=== PATIENT | female | born 1995 | race Caucasian/White ===

== ENCOUNTER 2024-04-30 10:36 | Emergency (ER) | payer OTHER, SELFPAY ==
[2024-04-30 10:46] VITALS: BP 126/71; PULSE 88; RESP 18; TEMP 36.4; O2SAT 97
--- NOTE | 2024-04-30 10:48 | ED.URI ---
HPI - URI/Sore Throat General Chief Complaint: Upper Respiratory Infection Stated Complaint: cough Time Seen by Provider: 04/30/24 10:48 Source: patient, RN notes reviewed and old records reviewed Mode of arrival: ambulatory Limitations: no limitations History of Present Illness HPI Narrative: 28-year-old female presents to the [facility] with 2 week history of cough, congestion, body aches, scratchy throat. Denies any fevers. States that in last couple days she has strep voice. Patient reports that she has tried products. Onset (ago): week(s) (2) Treatments prior to arrival: cold medicine Related Data Home Medications ?Medication ?Instructions ?Recorded ?Confirmed ?Last Taken ?Type No Home Medications 04/30/24 04/30/24 Unknown History Allergies Allergy/AdvReac Type Severity Reaction Status Date / Time No Known Allergies Allergy Unknown Verified 04/30/24 10:48 Review of Systems Review of Systems: All systems reviewed & are unremarkable except as noted in HPI and below Constitutional: Constitutional: Reports as per HPI and Reports body ache(s) ENT: Reports as per HPI and Reports sore throat Cardiovascular: Cardiovascular: Reports no additional cardiovascular complaints, Denies chest pain and Denies dyspnea Respiratory: Respiratory: Reports as per HPI, Reports chest congestion, Reports cough and Denies dyspnea Musculoskeletal: Musculoskeletal: Reports no additional musculoskeletal complaints Integumentary/Breasts: Skin/Breast: Reports system reviewed and no additional complaints, except as docu PMFSH Comments At the time of my signature, I reviewed and agree with the nursing past medical, surgical, social, and family history. There is no relevant family history pertinent to the patient complaint. Exam Const: General: cooperative, healthy appearing, comfortable, no acute distress, well developed, alert and well nourished Nutritional Appearance: well nourished and obese Orientation/consciousness: patient oriented x3 Limitations: no limitations HENMT: Head: normal to inspection Ears: hearing grossly normal bilaterally, external ears normal, TM's normal bilaterally, EAC's normal, mastoids normal and no periauricular adenopathy Mouth: Yes Normal oral and palatal mucosa present, Yes lip normal, Yes tongue normal and Yes moist mucous membranes Throat: uvula midline, postnasal drainage, tonsils absent and no uvular edema Eyes: General: appearance normal, both eyes and all related structures Alignment and Position: alignment normal Neck: Neck: normal visual inspection, full ROM, no lymphadenopathy and no meningeal signs Chest: Chest palpation & inspection: normal inspection of the chest Resp: Effort & Inspection: normal respiratory effort and able to speak in complete sentences Auscultation: clear to auscultation bilaterally, no crackles, no rales, no rhonchi and no wheezes Cardio: Rate: regular rate Skin: General skin exam: normal color and no rashes or lesions noted Neuro: General: patient oriented x3, gait normal, moves all extremities and no meningeal signs Cognition (Neuro): normal cognition Speech: normal speech Gait exam (Neuro): Normal gait present Extrem: General: normal to inspection, full ROM, capillary refill normal and normal gait Psych: Appearance: grossly normal and well kempt Mental Status: mental status grossly normal Speech and movement: Normal speech and movement present and Clear speech present Affect: normal affect Attitude: cooperative Course Course Level of Care: Express Care Visit Vital Signs Vital signs: Vital Signs Temperature 97.5 F L 04/30/24 10:46 Pulse Rate 88 04/30/24 10:46 Respiratory Rate 18 04/30/24 10:46 Blood Pressure 126/71 04/30/24 10:46 Pulse Oximetry 97 04/30/24 10:46 Oxygen Delivery Room Air 04/30/24 10:46 Temperature 97.5 F L 04/30/24 10:46 Pulse Rate 88 04/30/24 10:46 Respiratory Rate 18 04/30/24 10:46 Blood Pressure 126/71 04/30/24 10:46 Pulse Oximetry 97 04/30/24 10:46 Oxygen Delivery Room Air 04/30/24 10:46 Reviewed MDM - URI/Sore Throat MDM Narrative Medical decision making narrative: Patient sitting exam room. Nontoxic, vitals stable. Patient with 2 week history of URI symptoms. Scratchy throat loss of voice in the last couple days. Strep test is negative, will culture Due to length of symptoms will treat with doxycycline, discussed that this may not help because of this is viral symptoms can last for several weeks. Patient is wanting to try the antibiotic Patient appropriate for outpatient treatment and follow-up Discharge instructions reviewed with patient, as well as provided in writing per nursing staff. The instructions also include specific and strict return/GO TO THE ER as well as f/u information. All questions have been answered, and the patient deny any further questions with discharge and discharge plan. Some parts of this dictation were generated by voice recognition software and may contain typographical and/or grammatical inaccuracies. Differential Diagnosis Differential diagnosis: Likely upper respiratory infection, otitis media, sinusitis, viral infection, bronchitis, influenza and pharyngitis Lab Data Labs: Lab Results 04/30/24 Range/Units 11:06 POC Grp A Strep Screen Negative (Negative) Reviewed Critical Care Time Critical Care Time Critical Care Time: No Discharge Plan Discharge Clinical Impression: Bronchitis Upper respiratory infection Qualifiers: URI type: unspecified viral URI Qualified Code(s): J06.9 - Acute upper respiratory infection, unspecified Patient Disposition: Home, Self-Care Condition: Stable Instructions: Antibiotic Form, Upper Respiratory Infection (ED), Acute Bronchitis (ED) Additional Instructions: Your rapid strep swab was negative today at [facility]. A throat culture will be sent to the laboratory for further testing. If the test is positive, you will receive a phone call within 48 hours and an appropriate antibiotic will be initiated at that time. It is very important to treat your symptoms. Drink plenty of water, Gatorade, Pedialyte, ice pops or Jell-O. -Alternate Tylenol and Motrin per package directions for fever or pain. You can alternate every 4 hours -Antihistamine medication such as Zyrtec/Claritin/Marilee during the day can help improve symptoms. -doing daily nasal irrigations can help relieve pressure your sinuses. Things like a Neti pot -Use Flonase twice a day for 5 days then daily to help reduce the inflammation and dry up your sinuses. -You can also use Mucinex. Be sure to drink plenty of water with this medication at least 8 ounces with every dose and it is important to drink 8 to 10 glasses of water per day. Water is a natural decongestant -Eat and drink things that are easy to swallow, like tea or soup, or popsicles. -Oral rinses such as: Salt water gargles and/or may use topical anesthetic (eg. Chloraseptic spray) or lozenges to relieve dryness or throat pain). -Frequent hand washing or hand unit coordinator is one of the best ways to prevent spread of infection. -Using a vaporizer or humidifier at night will also help thin secretions and help with coughing up phlegm. -Follow up with primary care provider in 7-10 days if condition is not improving If you are having a hard time finding a physician please call our [facility] liaison at [phone]. - For new or worsening symptoms go directly to the nearest ER Patient Language: Czech Prescriptions: New doxycycline monohydrate 100 mg tablet 100 mg PO BID Qty: 14 0RF No Action No Home Medications Follow-up/Referrals: PHYSICIAN,PHARMACY DATA ANALYST [Primary Care Provider] - Stand Alone Forms: Work/School Release IP Time of Disposition: 11:04
[2024-04-30 11:08] LABS: EDSTREPNEGPOS1 Negative (Negative)
--- OUTSIDE RECORDS SUMMARY | 2024-04-30 11:58 | XMS_ITS | Clinical Summary ---
Author Organization [facility] Address [address] [place] [id number] Care Team Providers Care Car Groomer Name Role Phone No, Physician Primary Care Provider [phone] Fausto Gonsalez MD Unavailable [phone] Allergies No known active allergies Medications [id number] cb,[id number]-[id number]-tmr -dha 27-1-50-250 mg combo pack Take by mouth Active famotidine (PEPCID) 20 mg tablet Take 1 tablet (20 mg total) by mouth 2 (two) times a day Active ibuprofen (ADVIL,MOTRIN) 600 mg tabletIndicatio ns:Cramps Take 1 tablet (600 mg total) by mouth every 6 (six) hours as needed for pain 40 tablet 1 03/12/2023 Active PNV with [id number]-[id number] ( Vitamin Plus Low Iron) 27 mg iron- 1 mg tablet Take 1 tablet by mouth daily 100 tablet 3 03/12/2023 Active acetaminophen ER (TYLENOL) 650 mg 8 hr tablet Take 1 tablet (650 mg total) by mouth every 8 (eight) hours as needed for pain 30 tablet 1 03/12/2023 Active docusate sodium (COLACE) 100 mg capsuleIndicati ons:constipatio n,Stool Softener Take 1 capsule (100 mg total) by mouth 2 (two) times a day Prn 60 capsule 1 03/12/2023 Active Active Problems Problem Noted Date Diagnosed Date care following vaginal delivery 03/11 Overview (03/12/2023): 03/11/23, PPD#1 (JF) S/p uncomplicated eIOL and EBL 150 cc, Hgb 10.3 O positive, Rubella immune Vital signs reviewed and wnl Ambulating, tolerating PO, voiding spontaneously, lochia moderate, pain controlled MOF: - no concerns MOC: condoms - reviewed spacing VTE ppx: The patient has the following MAJOR risk factors BMI >/= 40 and the following MINOR risk factors parity >/=3. enoxaparin 40 mg daily ordered for VTE prophylaxis. Mood: stable Dispo: Continue routine care 03/12/23, PPD#2 (KR) S/p uncomplicated eIOL and EBL 150 cc, Hgb 10.3 O positive, Rubella immune Vital signs reviewed and wnl Ambulating, tolerating PO, voiding spontaneously, lochia moderate, pain controlled MOF: - no concerns MOC: condoms - reviewed spacing VTE ppx: The patient has the following MAJOR risk factors BMI >/= 40 and the following MINOR risk factors parity >/=3. enoxaparin 40 mg daily ordered for VTE prophylaxis. Mood: stable Dispo: discharge home today Normal spontaneous vaginal delivery 03/10/2023 Encounter for elective induction of labor 2023 Overview (03/10/2023): 03/10/2022 1116 (CZ) 27 yo @ 39w1d here for induction of labor. Her was complicated by asthma, GBS uria, Short interval , Morbid obesity, and LGA, last EFW 02/16 95%. VSS, afebrile O+, rubella Immune Hgb: 10.3 SVE 4.5/80/-2 GBS Positive : 3 doses of PCN administered AROM performed with patient consent. Moderate amount of meconium stained fluid noted. Patient would like to avoid OT, but will consider if no cervical change is made. Discussed options for monitoring. Recommended internals. Patient declines. Plan intermittent monitoring with reactive tracing until OT is started or with non-reactive tracing. Anticipate Pain meds per patient request. 03/10/2023 1215 (CZ) VSS, afebrile Reactive tracing with difficulty monitoring patient SVE 5/80/-2 IUPC and FSE placed with patient consent. Patient endorsing painful contractions Consider OT if necessary. Anticipate 03/10/2022 1608 (CZ) VSS, afebrile Occasional variable decelerations noted on monitoring that resolve with position changes. Cat.2 SVE 5/70/-2 Unchanged from previous exam Discussed OT titration. Patient agrees. Plan OT titration per protocol Encouraged frequent position changes. Anticipate 03/10/2022, 1830 (Sunshine): Patient is tolerating unmedicated labor. Has received 4 doses of penicillin. Oxytocin had been started and increased to 4 mU/min, then discontinued due to repetitive deep variable decelerations. Amnio infusion administered, initially 450 mL, then held, then an additional 250 mL now being administered. FHT baseline 120s to 130s, moderate variability, repetitive variable decelerations to [place] between 60s to 80s, lasting from 40-60 seconds. 8/80/-2 Contractions every 4-7 minutes Continue to change position and watch closely as patient is making progress. Excessive growth affec ting management of in third trimester 02/16/2023 Encounter for supervision of normal in second trimester 09/17/2022 Supervision of other normal , antepartu m 11/21/2021 Overview (03/10/2023): Surveillance of EDC by LMP= 10wk US O+/I/-/-/HIV RPR NR Genetics: none Anatomy: 20 weeks (complete EFW 86%) GCT: 93 3rd trim CBC/HIV/RPR - 10.6/34.0 - oral iron recommended Tdap: 01/04 GBS: GBS- URIA! COVID Vaccine: declined Social Barriers: none Mood: stable Mode of feeding: breast Method of contraception: condoms Delivery Planning: Desires rrIOL at 39 weeks. Scheduled 03/15 at 5 am with pitocin and PCN to start right away Short Interval < 9 months Vaginal delivery 11/20/2021 Discussed short interval including increased risk of PTL/PTB, and low weight Morbid Obesity; LGA BMI 56 Counseled on target weight gain for this Early GCT - passed 117 Reviewed healthy diet and exercise ASA 81mg daily at 12 weeks Needs serial growth US - last 02/16 - 95.9% (LGA). Counseled on risks of LGA delivery Recommend weekly monitoring @ 34wks BPP 03/03 10/12 anesthesia consult - seen 02/15 - cleared for delivery here at [facility], considering no epidural. H/o Asthma Well controlled, no meds Obesity affecting , antepartum 05/14/19 GBS bacteriuria 05/13/2021 Resolved Problems Problem Noted Date Diagnosed Date Resolved Date Normal course 11/21/2021 Overview (11/22/2021): 11/21/2021, PPD 1 status post (Sunshine): Rh positive, rubella immune Ambulating, voiding, tolerating regular diet, pain controlled. Lochia normal AF VSS WNL Normal exam H&H appropriate Continue routine care Anticipate discharge home tomorrow 11/22/2021, PPD 2 (Sunshine): well Ambulating, voiding, tolerating regular diet, pain tolerable AF VSS WNL Normal exam Stable for discharge Routine discharge precautions Patient declines discharge prescription for pain medication 39 weeks gestation of 11/20/2021 11/22/2021 Encounter for elective induction of labor 11/20/2021 11/22/2021 Overview (11/22/2021): 11/20/21, 1:15pm (SO): heart rate 170-180 on admission. Unable to monitor effectively with EFM or [place] r/t morbid obesity. VE 4.5/80/-2 and well applied to cervix. AROM done, scalp lead and IUPC applied. No fluid seen. IV fluid bolus was given Will monitor and was the FHR is Cat 1, will start pitocin EFW 62% Pain management per patient's wishes Immunizations Immunization Administration Dates Next Due Tdap 01/04/2023 Surgical History Surgery Date Site/Laterality Comments COLONOSCOPY TONSILLECTOMY UPPER GASTROINTESTINAL ENDOSCOPY Medical History Medical History Date Comments Abnormal Pap smear of cervix Depression Asthma Family History Medical History Relation Name Comments Hypertension Father Diabetes Maternal Grandfather Diabetes Mother Breast cancer Neg Hx Ovarian cancer Neg Hx Uterine cancer Neg Hx Relation Name Status Comments Father Alive Maternal Grandfather Mother Alive Social History Tobacco Use Types Packs/Day Years Used Date Smoking Tobacco: Never Tobacco Cessation:Counseling Given: Not Answered AUDIT-C Answer Date Recorded Q1: How often do you have a drink containing alcohol? Never 03/09/2023 Q2: How many drinks containi ng alcohol do you have on a typical day when you are drinking? Patient does not drink Q3: How often do you have si x or more drinks on one occasion? Never 03/09/2023 PHQ-2 Answer Date Recorded PHQ-2 Total Score (If total score is 3 or more points, staff should administer the PHQ-9) 0 03[facility]09/[address] [facility] - Occupational Stress Questionnaire Answer Date Recorded Do you feel stress - tense, restless, nervous, or anxious, or unable to sleep at night because your mind is troubled all the time - these days? Patient declined 03/09/2023 Exercise Vital Sign Answer Date Recorde d On average, how many days pe r week do you engage in moderate to strenuous exercise (like a brisk walk)? Patient declined On average, how many minutes do you engage in exercise at this level? Patient declined 03/09/2023 O'Brien Depression Scale Answer Date Recorded O'Brien Depression Scale Total 2 03/11/2023 The thought of harming myself has occurred to me . Never 03/11/2023 Personal Safety Answer Date Recorded Getting School Help Needed Not on file 02/15 Comments No Sex and Gender Information Value Date Recorded Sex Assigned at Not on file Legal Sex Female 8:04 PM BAG BAILER Gender Identity Female 08/29/2022 7:32 AM CDT Sexual Orientation Not on file Obstetrics History Para Term AB IAB SAB Ectopic Multiple Livin g Live Births 4 4 4 0 4 4 Date Outcome GA Total Labor Labor/2nd/3rd Weight Sex Type Anes PTL Layla A1 A5 Name Clin 2017 Term 40w 1d 3.6 kg (7 lb 15 oz) F Vag-Sp ont Epidur al N Livin g Complications:None Delivery Location:[place] 2020 Term 39w 2d 3.629 kg (8 lb) M Vag-Sp ont Epidur al N Livin g Complications:None Delivery Location:[facility] 2021 Term 39w 6d 1h 00m 0h 34m/0h 21m/0h 05m 3.86 kg (8 lb 8.2 oz) M Vag-Sp ont None N Livin g 8 9 ASAD E,PIOTR DERICK E Rickey tyler, Daquan Gates CNM Complications:None Delivery Location:[facility] ([facility]) 2023 Term 39w 1d 3h 53m 3h 43m/0h 04m/0h 06m 3.55 kg (7 lb 13.2 oz) M Vagina l None N Livin g 8 9 Darcy Hardwick, Fausto Craig MD Complications:None Delivery Location:[facility] ([facility]) Last Filed Vital Signs Vital Sign Reading Time Taken Comments Blood Pressure 132/78 03/12/2023 11:55 AM BAG BAILER Pulse 84 03/12/2023 11:55 AM BAG BAILER Temperature 36.6 C (97.8 F) 03/12/2023 11:55 AM BAG BAILER Respiratory Rate 18 03/12/2023 11:55 AM BAG BAILER Oxygen Saturation 97% 03/12/2023 5:50 AM BAG BAILER Inhaled Oxygen Concentration - - Weight 175.1 kg (386 lb) 03/09/2023 8:26 PM BAG BAILER Height 172.7 cm (5' 8 ) 03/09/2023 8:26 PM BAG BAILER Body Mass Index 58.69 03/09/2023 8:26 PM BAG BAILER Plan of Treatment Health Maintenance Due Date Last Done Comments Cervical Cancer Screening 1994 Varicella Vaccines (1 of 2 - 13+ 2-dose series) 12/21/2007 Regular Well Visit/Exam 18-64 04/17/2022 04/17/2021 Influenza Vaccine (#1) 2023 03/21/2012 Depression Screening 03/11/2024 03/11/2023, 02/15/2023, 02/15/2023 DTaP/Tdap/Td Vaccine (8 - Td or Tdap) 01/04/2033 01/04/2023, 02/13/2007, 03/31/2000, Additional history exists Hepatitis B Screening Completed 07/04/1995 , 03/03/1995, 1994, Additional history exists HPV Vaccines Completed 08/25/2007, 04/07, 02/13/2007 Hepatitis C Screening Completed 08/11/2022, 022 Pneumococcal vaccine <65 Aged Out No longer eligible based on patient's age to complete this topic Procedures Procedure Name Priority Date/Time Associated Diagnosis Comments HEPATITIS C ANTIBODY Routine 08/11/2022 3:51 PM CDT Positive test from Last 3 Months or Most Recently Relevant to Health Maintenance Results * Hepatitis C antibody (08/11/2022 3:51 PM CDT) Hep C Ab Nonreactive Nonreactive MARTINEZ WILEY Comment: Interpretive Data Nonreactive: Antibodies to HCV not detected. Does NOT exclude the possibility of recent exposure to HCV. Equivocal: Equivocal for HCV antibodies. Supplemental molecular testing will be automatically performed to determine infection status in accordance with current CDC screening recommendations. Reactive: Positive for HCV antibodies. This may represent current or past HCV infection. Supplemental molecular testing will be automatically performed to determine current infection status in accordance with current CDC screening recommendations. Interpretive data was last revised on 2019. Blood 08/11/2022 3:51 PM CDT 08/11/2022 6:23 PM CDT us Fausto Gonsalez MD LAB MICROBIOLOGY - GENERAL ORDERABLES Final Result [facility] [address] [facility] Department [place] [id number] from Last 3 Months or Most Recently Relevant to Health Maintenance Insurance [employer] [facility] [employer] [facility] Advance Directives For more information, please contact: [phone] * Full Code (Latest Code Status on File) Date Activated Date Inactivated Comments 03/10/2023 8:20 PM 03/12/2023 5:29 PM * Full Code Date Activated Date Inactivated Comments 03/09/2023 8:25 PM 03/10/2023 8:20 PM Full CPR in ca se of cardiopulmonary arrest * Full Code Date Activated Date Inactivated Comments 11/20/2021 8:45 PM 11/22/2021 5:25 PM * Full Code Date Activated Date Inactivated Comments 11/20/2021 12:29 PM 11/20/2021 8:45 PM Full CPR in case of cardiopulmonary arrest Care Teams Car Groomer Relationship Specialty Start Date End Date No, Physician PCP - General 03/16/21 Fausto Gonsalez MD [address] [place] [id number] Consulting Physician Obstetrics and Gynecology 03/12/23
--- OUTSIDE RECORDS SUMMARY | 2024-04-30 11:58 | XMS_ITS | Clinical Summary ---
Author Organization [facility] Address [address] [place] [address] Care Team Providers Care It Operations Analyst Name Role Phone Yasmin Piper MD Primary Care Provider Source Comments [facility],non-owned Affiliates and Associated Physician Practices is amultiple site organization consisting of ambulatory clinics and hospital sitesin [place], [place], [place] and [place]. This disclosure is being madepursuant to the Care Everywhere program and may not contain all information available regarding this patient. Last updated 17.[facility] Allergies No known active allergies Medications * Be aware that medications may not be up to date on this document. Alwaysverify current medications with the patient. Medication Sig Dispensed Refills Start Date End Date Status aspirin EC (ECOTRIN) 81 MG tabletIndications:p regnancy Take 81 mg by mouth 2 times daily Reasons: Active Vit-Fe Fumarate-FA ( VITAMIN) 28-0.8 MG tabletIndications:P regnancy Take 1 tablet by mouth once daily Reasons: Active cetirizine (ZYRTEC) 10 MG tabletIndications:S easonal Allergic Rhinitis Take 10 mg by mouth as needed for Allergies Reasons: Hayfever Active albuterol HFA (PROVENTIL;VENTOLIN ;PROAIR) 108 (90 Base) MCG/ACT inhalerIndications: Asthma Inhale 2 puffs by mouth as needed for Shortness of Breath, Wheezing or Cough Reasons: Asthma Active folic acid (FOLVITE) 1 MG tabletIndications:N eural Tube Defect Take 1 mg by mouth once daily Reasons: Defects of the Neural Tube Active ibuprofen (MOTRIN) 600 MG tablet Take 1 (one) tablet by mouth every 6 hours as needed for Pain 100 tablet 04/17/2020 Active acetaminophen (TYLENOL) 500 MG capsule Take 1 (one) capsule by mouth every 4 hours as needed for Fever or Pain 100 capsule 04/17/2020 Active docusate sodium (COLACE) 100 MG capsule Take 1 (one) capsule by mouth 2 times daily 60 capsule 04/17/2020 Active ferrous sulfate 325 (65 FE) MG tablet Take 1 (one) tablet by mouth once daily 100 tablet 04/17/2020 Active Active Problems Problem Noted Date Diagnosed Date care following vaginal delivery 04/16 Encounter for elective induction of labor 2020 Maternal morbid obesity, delivered, current hosp italization 04/07/2020 Abnormal Pap smear of cervix during Overview (11/28/2019): Shares she had moderate dysplasia this and will be doing colposcopy with Crew Trainer, encouraged patient to follow through with rescheduling this appointment. Discussed potential need for follow up as well. Assessment & Plan (11/28/2019 4:10 PM CDT): Shares she had moderate dysplasia this and will be doing colposcopy with Crew Trainer, encouraged patient to follow through with rescheduling this appointment. Discussed potential need for follow up as well. Morbid obesity with BMI of 50.0-59.9, adult 11/05 Overview (11/19/2019): Pre BMI: 54 Early GCT: 106 Assessment & Plan (11/28/2019 4:25 PM CDT): Pre BMI: 54 Early GCT: 106 Total weight gain: 18 lb 9.6 oz (8.437 kg) MFM Plan: 1. Limit weight gain to 0-15 pounds. Active weight loss is not encouraged. 2. Reviewed healthy dietary choices today with patient. 3. Nutrition counseling strongly recommended and will set up with our CDE. 4. Serial growth ultrasounds. 5. Weekly testing to include 8 point BPP recommended at 36 weeks. 6. Encouraged alpha fetoprotein screening to be done with Crew Trainer prior to 21 weeks. 7. Referring Crew Trainer please also collect: hemoglobin A1C, TSH, free T4, CMP. 8. Folic acid 1mg sent to pharmacy to be taken in addition to PNV. 9. Anatomy ultrasound pending today and formal report to follow. Asthma affecting in second trimester 0 11/19/2019 Overview (11/28/2019): Mild persistent based on Albuterol use during the day, 3x per week for the last several months, warrants daily ICS. Denies hospitalizations, notes Albuterol relieves her symptoms, she does not have PCP. Assessment & Plan (11/28/2019 4:15 PM CDT): Mild persistent based on Albuterol use during the day, 3x per week for the last several months, warrants daily ICS. Denies hospitalizations, notes Albuterol relieves her symptoms, she does not have PCP. 1. MFM Plan: 2. Seek prompt medical evaluation if having exacerbation and not relieved with Albuterol. 3. Establish care with PCP. 4. Start Flovent, 44mcg, 2 puffs BID--RX provided. Marijuana use 11/19/2019 Assessment & Plan (11/28/2019 4:13 PM CDT): Current use 1/3 gram per day, she has desire for reduced use and is trying. Reviewed aformented data on and effects of continued marijuana use. Shares she is smoking due to her anxiety, has prescription for buspirone from OB, has yet to start. Desires cessation. MFM Plan 1. Encouraged cessation, praised her honesty and efforts in reduction thus far. Encouraged her treatment of anxiety as well. 2. Discouraged with continued marijuana use. Supervision of high risk pre gnancy, antepartum, unspecified trimester 11/19/2019 Overview (11/19/2019): Dating: LMP c/w 12w4d u/s with CRL of 6.14cm, giving RIVAS--> 04/21/20 summary from 10/12/19: O+/Rub Immune/Hep B surface antigen neg/TP-PA NR/HIV NR CBC: H/H/P: 14.2/42.4/366 Anxiety and PTSD Assessment & Plan (11/28/2019 4:22 PM CDT): History of PTSD with anxiety. Notes anxiety to be prominent and affecting her quality of life. States she smokes marijuana daily due to her anxiety, but desires to stop marijuana. Has prescription for buspirone from Crew Trainer, hesitant to start. Has counselor that she has recently reached out to for resumption of counseling. History of trauma, has done counseling for that and history of PTSD. [facility] Plan: 1. Buspar [Buspirone]: [place] FDA class B. Limited data. No increased risk of congenital anomalies. It is excreted in breast milk. No strong contraindication to . I encouraged Aurelia to start her prescribed Buspar to aid her prominent anxiety. Discussed that buspirone is different from SSRIs which she has not liked in the past. 2. Hydroxyzine also sent to pharmacy for as needed use while waiting for buspirone to be effective. 3. Echoed her desire to resume counseling. 4. Support provided. PTSD (post-traumatic stress disorder) Resolved Problems Problem Noted Date Diagnosed Date Resolved Date Anxiety and depression 11/19/201911/27 Immunizations Name Administration Dates Next Due MMR 04/16/2020(Deferred: See Comment s - immune) TDAP (7yrs+) 04/16/2020() Family History Medical History Relation Name Comments High Cholesterol Father Diabetes; unknown type Maternal Grandfather Cancer - Breast Maternal Grandmother Diabetes; unknown type Mother Hypertension Mother Relation Name Status Comments Father Alive Maternal Grandfather Alive Maternal Grandmother Alive Mother Alive Paternal Grandfather Alive Paternal Grandmother Alive Sister 1 Alive Sister 2 Alive Social History Tobacco Use Types Packs/Day Years Used Date Smoking Tobacco: Never Smokeless Tobacco: Never Alcohol Use Standard Drinks/Week Comments Not Currently 0 (1 standard drink = 0.6 oz pur e alcohol) AUDIT-C Answer Date Recorded Q1: How often do you have a drink containing alc ohol? Never 11/28/2019 Average Number of Drinks Not on file 020 Frequency of Binge Drinking Not on file 11/06 Sex and Gender Information Value Date Recorded Sex Assigned at Not on file Gender Identity Not on file Sexual Orientation Not on file Last Filed Vital Signs Vital Sign Reading Time Taken Comments Blood Pressure 147/75 04/17/2020 9:20 AM SURG NURSE Pulse 90 04/16/2020 3:00 PM SURG NURSE Temperature 37.1 C (98.7 F) 04/17/2020 9:20 AM SURG NURSE Respiratory Rate 18 04/17/2020 9:20 AM SURG NURSE Oxygen Saturation 98% 04/17/2020 9:20 AM SURG NURSE Inhaled Oxygen Concentration - - Weight 176 kg (388 lb) 04/14/2020 6:38 PM SURG NURSE Height 172.7 cm (5' 8 ) 04/14/2020 6:38 PM SURG NURSE Body Mass Index 59 04/14/2020 6:38 PM SURG NURSE Plan of Treatment Health Maintenance Due Date Last Done Comments HIV SCREENING 2009 HEPATITIS C SCREENING 12/15/2012 DTAP/TDAP/TD VACCINES (1 - Tdap) 2013 HEPATITIS B VACCINE (1 of 3 - 19+ 3-dose series) 2013 PNEUMOCOCCAL VACCINE (1 of 2 - PCV) 2013 PAP SMEAR 10/11/2022 10/12/2019, 10/12/2019 COVID-19 VACCINE (1 - 2023-2 5 season) 2023 INFLUENZA VACCINE (#1) 2023 DEPRESSION SCREENING 03/07/2024 ZOSTER VACCINE (1 of 2) 2044 HIB VACCINE Aged Out No longer eligi ble based on patient's age to complete this topic HPV VACCINE Aged Out No longer eligi ble based on patient's age to complete this topic MENINGOCOCCAL (Group B) VACCINE Aged Out No longer eligible b ased on patient's age to complete this topic MENINGOCOCCAL VACCINE Aged Out No matthew dmitriy eligible based on patient's age to complete this topic Advance Directives * Full Code (Latest Code Status on File) Date Activated Date Inactivated Comments 04/14/2020 6:11 PM 04/17/2020 3:46 PM Care Teams It Operations Analyst Relationship Specialty Start Date End Date Yasmin Piper MD [address] [place], [place] [address] [address] PCP - General 04/08/20
--- OUTSIDE RECORDS SUMMARY | 2024-04-30 11:58 | XMS_ITS | Referral Summary ---
Author Organization [facility] [place] [facility] Address [address] [place] [id number] Care Team Providers Care Patient Intake Representative Name Role Phone No, Physician Primary Care Provider [phone] Fausto Gonsalez MD Unavailable [phone] Allergies No known active allergies Medications [id number] cb,py-urbzi-qii -dha 27-1-50-250 mg combo pack Take by mouth Active famotidine (PEPCID) 20 mg tablet Take 1 tablet (20 mg total) by mouth 2 (two) times a day Active ibuprofen (ADVIL,MOTRIN) 600 mg tabletIndicatio ns:Cramps Take 1 tablet (600 mg total) by mouth every 6 (six) hours as needed for pain 40 tablet 1 03/12/2023 Active PNV with hvrznvl-lhza-DO ( Vitamin Plus Low Iron) 27 mg [...] 02/15 - cleared for delivery here at [facility], considering no epidural. H/o Asthma Well controlled, [...] Unable to monitor effectively with EFM or [place] r/t morbid obesity. VE 4.5/80/-2 and well applied to cervix. AROM done, scalp lead and IUPC applied. No fluid seen. IV fluid bolus was given Will monitor and was the FHR is Cat 1, will start pitocin EFW 62% Pain management per patient's wishes Immunizations Immunization Administration Dates Next Due Tdap 01/04/2023 Social History Tobacco Use Types Packs/Day Years [...] staff should administer the PHQ-9) 0 03/09/2023 [facility] - Occupational Stress Questionnaire Answer Date Recorded [...] exercise at this level? Patient declined 03/09/2023 [place] Depression Scale Answer Date Recorded [place] Depression Scale Total 2 03/11/2023 The thought of harming myself has occurred to me . Never 03/11/2023 Personal Safety Answer Date Recorded Getting School Help Needed Not on file 02/15 Comments No Sex and Gender Information Value Date Recorded Sex Assigned at Not on file Legal Sex Female 8:04 PM SITE TECHNICIAN Gender Identity Female 08/29/2022 7:32 AM CDT Sexual Orientation Not on file Last Filed Vital Signs Vital Sign Reading Time Taken Comments Blood Pressure 132/78 03/12/2023 11:55 AM SITE TECHNICIAN Pulse 84 03/12/2023 11:55 AM SITE TECHNICIAN Temperature 36.6 C (97.8 F) 03/12/2023 11:55 AM SITE TECHNICIAN Respiratory Rate 18 03/12/2023 11:55 AM SITE TECHNICIAN Oxygen Saturation 97% 03/12/2023 5:50 AM SITE TECHNICIAN Inhaled Oxygen Concentration - - Weight 175.1 kg (386 lb) 03/09/2023 8:26 PM SITE TECHNICIAN Height 172.7 cm (5' 8 ) 03/09/2023 8:26 PM SITE TECHNICIAN Body Mass Index 58.69 03/09/2023 8:26 PM SITE TECHNICIAN Plan of Treatment Not on file Procedures Procedure Name Priority Date/Time Associated Diagnosis [...] 3:51 PM CDT 08/11/2022 6:23 PM CDT Fausto Gonsalez MD LAB MICROBIOLOGY - GENERAL ORDERABLES Final Result [facility] [id number] [facility] Department [place] [address] from Last 3 Months or Most Recently Relevant to Health Maintenance Insurance [address] [place] [id number] [facility] Advance Directives For more information, please contact: [phone] * Full Code (Latest Code Status on [...] in case of cardiopulmonary arrest Care Teams Patient Intake Representative Relationship Specialty Start Date End Date No, Physician PCP - General 03/16/21 Fausto Gonsalez MD [address] [place] [id number] Consulting Physician Obstetrics and Gynecology 03/12/23
--- OUTSIDE RECORDS SUMMARY | 2024-04-30 11:58 | XMS_ITS | Referral Summary ---
Author Organization [facility] Address [address] [place] [address] Care Team Providers Care Spinning Frame Cleaner Name Role Phone Yasmin Piper MD Primary Care Provider Source Comments [facility],non-owned Affiliates and Associated Physician Practices is amultiple site organization consisting of ambulatory clinics and hospital sitesin [place], [place], [place] and [place]. This disclosure is being madepursuant to the Care Everywhere program and may not contain all information available regarding this patient. Last updated 17.[facility] Allergies No known active allergies Medications * [...] this and will be doing colposcopy with Bed Operator, encouraged patient to follow through with rescheduling this appointment. Discussed potential need for follow up as well. Assessment & Plan (11/28/2019 4:10 PM CDT): Shares she had moderate dysplasia this and will be doing colposcopy with Bed Operator, encouraged patient to follow through with rescheduling [...] alpha fetoprotein screening to be done with Bed Operator prior to 21 weeks. 7. Referring Bed Operator please also collect: hemoglobin A1C, TSH, free [...] stop marijuana. Has prescription for buspirone from Bed Operator, hesitant to start. Has counselor that she has recently reached out to for resumption of counseling. History of trauma, has done counseling for that and history of PTSD. [facility] Plan: 1. Buspar [Buspirone]: US FDA class [...] Comment s - immune) TDAP (7yrs+) 04/16/2020() Social History Tobacco Use Types Packs/Day Years [...] Comments Blood Pressure 147/75 04/17/2020 9:20 AM EVALUATION ANALYST Pulse 90 04/16/2020 3:00 PM EVALUATION ANALYST Temperature 37.1 C (98.7 F) 04/17/2020 9:20 AM EVALUATION ANALYST Respiratory Rate 18 04/17/2020 9:20 AM EVALUATION ANALYST Oxygen Saturation 98% 04/17/2020 9:20 AM EVALUATION ANALYST Inhaled Oxygen Concentration - - Weight 176 kg (388 lb) 04/14/2020 6:38 PM EVALUATION ANALYST Height 172.7 cm (5' 8 ) 04/14/2020 6:38 PM EVALUATION ANALYST Body Mass Index 59 04/14/2020 6:38 PM EVALUATION ANALYST Functional Status Functional Status Response Date of Assess ment Is person deaf or have serious hearing difficult y? No 04/14/2020 Is person blind or have serious difficulty seein g? No 04/14/2020 Does person have serious dif ficulty walking/climbing stairs? No 04/14/2020 Does person have difficulty dressing/bathing? No 04/14/2020 Does person have difficulty doing errands alone? No 04/14/2020 Cognitive Status Response Date of Assessm ent Does person have difficulty concentrating/remembering/making decisions? No 04/14/2020 Plan of Treatment Not on file Advance Directives * Full Code (Latest Code Status on File) Date Activated Date Inactivated Comments 04/14/2020 6:11 PM 04/17/2020 3:46 PM Care Teams Spinning Frame Cleaner Relationship Specialty Start Date End Date Yasmin Piper MD [address] [place] [address] PCP - General 04/08/20
--- OUTSIDE RECORDS SUMMARY | 2024-04-30 11:58 | XMS_ITS | Patient Health Summary ---
Author Organization [facility] Address [address] [place] [address] Care Team Providers Care Engine Dispatcher Name Role Phone Yasmin Piper MD Primary Care Provider Note from [facility],non-owned Affiliates and Associated Physician Practices is amultiple site organization consisting of ambulatory clinics and hospital sitesin [place], [place], [place] and [place]. This disclosure is being madepursuant to the Care Everywhere program and may not contain all information available regarding this patient. Last updated 17.[facility] Allergies No known active allergies Medications * Be aware that medications may not be up to date on this document. Alwaysverify current medications with the patient. * aspirin EC (ECOTRIN) 81 MG tablet Take 81 mg by mouth 2 times daily Reasons: * Vit-Fe Fumarate-FA ( VITAMIN) 28-0.8 MG tablet Take 1 tablet by mouth once daily Reasons: * cetirizine (ZYRTEC) 10 MG tablet Take 10 mg by mouth as needed for Allergies Reasons: Hayfever * albuterol HFA (PROVENTIL;VENTOLIN;PROAIR) 108 (90 Base) MCG/ACT inhaler Inhale 2 puffs by mouth as needed for Shortness of Breath, Wheezing or Cough Reasons: Asthma * folic acid (FOLVITE) 1 MG tablet Take 1 mg by mouth once daily Reasons: Defects of the Neural Tube * ibuprofen (MOTRIN) 600 MG tablet(Started 04/17/2020) Take 1 (one) tablet by mouth every 6 hours as needed for Pain * acetaminophen (TYLENOL) 500 MG capsule(Started 04/17/2020) Take 1 (one) capsule by mouth every 4 hours as needed for Fever or Pain * docusate sodium (COLACE) 100 MG capsule(Started 04/17/2020) Take 1 (one) capsule by mouth 2 times daily * ferrous sulfate 325 (65 FE) MG tablet(Started 04/17/2020) Take 1 (one) tablet by mouth once daily Active Problems Problem Noted Date Diagnosed Date care following vaginal delivery 04/16 Encounter for elective induction of labor 2020 Maternal morbid obesity, delivered, current hosp italization 04/07/2020 Abnormal Pap smear of cervix during Morbid obesity with BMI of 50.0-59.9, adult 11/05 Asthma affecting in second trimester 0 11/19/2019 Marijuana use 11/19/2019 Supervision of high risk pre gnancy, antepartum, unspecified trimester 11/19/2019 Anxiety and PTSD PTSD (post-traumatic stress disorder) Resolved Problems Problem Noted Date Diagnosed Date Resolved Date Anxiety and depression 11/19/201911/27 Social History Tobacco Use Types Packs/Day Years [...] Comments Blood Pressure 147/75 04/17/2020 9:20 AM DYNAMICS AX TECHNICAL ARCHITECT Pulse 90 04/16/2020 3:00 PM DYNAM[employer] AX TECHNICAL ARCHITECT Temperature 37.1 C (98.7 F) 04/17/2020 9:20 AM DYNAMICS AX TECHNICAL ARCHITECT Respiratory Rate 18 04/17/2020 9:20 AM DYNAMICS AX TECHNICAL ARCHITECT Oxygen Saturation 98% 04/17/2020 9:20 AM DYNAMICS AX TECHNICAL ARCHITECT Inhaled Oxygen Concentration - - Weight 176 kg (388 lb) 04/14/2020 6:38 PM DYNAMICS AX TECHNICAL ARCHITECT Height 172.7 cm (5' 8 ) 04/14/2020 6:38 PM DYNAMICS AX TECHNICAL ARCHITECT Body Mass Index 59 04/14/2020 6:38 PM DYNAMICS AX TECHNICAL ARCHITECT Procedures * IMAGING/RADIOLOGY/XRAY RESULTS ORDER(Performed 04/22/2020) * CBC W AUTO DIFFERENTIAL(Performed 04/16/2020) * BLOOD GASES CORD CAROLYN(Performed 04/15/2020) * BLOOD GASES CORD ARTERIAL(Performed 04/15/2020) * NEURAXIAL BLOCK(Performed 04/15/2020) * NEURAXIAL BLOCK(Performed 04/15/2020) * BLOOD TYPE VERIFICATION(Performed 04/14/2020) * URINE DRUG SCREEN IMMUNOASSAY(Performed 04/14/2020) * TYPE + SCREEN PANEL(Performed 04/14/2020) * SYPHILIS ANTIBODY CASCADING REFLEX(Performed 04/14/2020) * CBC W AUTO DIFFERENTIAL(Performed 04/14/2020) * URINE DRUG SCREEN IMMUNOASSAY(Performed 04/07/2020) Performed for Morbid obesity with BMI of 50.0-59.9, adult ([facility]), Supervision of high risk , antepartum, unspecified trimester ([facility]) * CULTURE STREP B(Performed 04/07/2020) Performed for Morbid obesity with BMI of 50.0-59.9, adult ([facility]), Supervision of high risk , antepartum, unspecified trimester ([facility]) * GLUCOSE PROTEIN KETONE URINE - POINT OF CAR(Performed 04/07/2020) Performed for , unspecified gestational age ([facility]) * BIOPHYSICAL PROFILE W NST(Performed 04/07/2020) Performed for Morbid obesity with BMI of 50.0-59.9, adult ([facility]), Supervision of high risk , antepartum, unspecified trimester ([facility]) * BIOPHYSICAL PROFILE W NST(Performed 03/25/2020) Performed for Morbid obesity with BMI of 50.0-59.9, adult ([facility]), Supervision of high risk , antepartum, unspecified trimester ([facility]) * SONOGRAM - COMPLETE(Performed 03/10/2020) Performed for Morbid obesity with BMI of 50.0-59.9, adult ([facility]), Supervision of high risk , antepartum, unspecified trimester ([facility]) * SONOGRAM - COMPLETE(Performed 02/11/2020) Performed for Morbid obesity with BMI of 50.0-59.9, adult ([facility]), Asthma affecting in second trimester ([facility]), Marijuana use, Supervision of high risk , antepartum, unspecified trimester ([facility]) * SONOGRAM - COMPLETE(Performed 01/16/2020) Performed for Morbid obesity with BMI of 50.0-59.9, adult ([facility]), Asthma affecting in second trimester ([facility]), Supervision of high risk , antepartum, unspecified trimester ([facility]) * SONOGRAM - COMPLETE(Performed 12/24/2019) Performed for Morbid obesity with BMI of 50.0-59.9, adult ([facility]), Asthma affecting in second trimester ([facility]), Marijuana use, Supervision of high risk , antepartum, unspecified trimester ([facility]), PTSD (post- traumatic stress disorder), Abnormal cervical Papanicolaou smear, unspecified abnormal pap finding * SONOGRAM - COMPLETE(Performed 11/28/2019) Performed for Morbid obesity with BMI of 50.0-59.9, adult ([facility]), Asthma affecting in second trimester ([facility]), Supervision of high risk , antepartum, unspecified trimester ([facility]) Results * IMAGING RADIOLOGY XRAY RESULTS ORDER (04/22/2020 12:01 PM DYNAMICS AX TECHNICAL ARCHITECT) Anatomical Region Laterality Modality Other Narrative 04/22/2020 12:01 PM D[employer]NAM[employer] AX TECHNICAL ARCHITECT Ordered by an unspecified provider. Scanned Document IMAGING * (ABNORMAL) CBC W AUTO DIFFERENTIAL (04/16/2020 4:53 AM DYNAMICS AX TECHNICAL ARCHITECT) Only the most recent of2 resultswithin the time period is included. WBC 13.1(H) 4.4 - 10.7 x10E9/L 04/16/2020 5:23 AM DYNAMICS AX TECHNICAL ARCHITECT [facility] WBC Corrected 04/16/2020 5:23 AM DYNAMICS AX TECHNICAL ARCHITECT [facility] RBC 4.28 3.80 - 5.20 x10E12/L 04/16/2020 5:23 AM DYNAMICS AX TECHNICAL ARCHITECT [facility] Hemoglobin 12.7 12.0 - 15.6 gm/dL 04/16/2020 5:23 AM DYNAMICS AX TECHNICAL ARCHITECT [facility] Hematocrit 39.7 35.9 - 45.5 % 04/16/2020 5:23 AM DYNAMICS AX TECHNICAL ARCHITECT [facility] MCV 92.8 80.7 - 98.3 fl 04/16/2020 5:23 AM DYNAMICS AX TECHNICAL ARCHITECT [facility] MCH 29.7 26.7 - 34.0 pg 04/16/2020 5:23 AM DYNAMICS AX TECHNICAL ARCHITECT [facility] MCHC 32.0 30.8 - 35.9 gm/dL 04/16/2020 5:23 AM [facility] Platelet Count 296 153 - 416 x10E9/L 04/16/2020 5:23 AM [facility] RDW-CV 14.0 12.1 - 14.9 % 04/16/2020 5:23 AM [facility] MPV 10.5 9.4 - 12.9 fl 04/16/2020 5:23 AM [facility] Neutrophils % 59.6 44.0 - 73.0 % 04/16/2020 5:23 AM [facility] Lymphocytes % 33.2 20.0 - 43.0 % 04/16/2020 5:23 AM [facility] Monocytes % 6.0 5.0 - 13.0 % 04/16/2020 5:23 AM [facility] Eosinophils % 0.3 0.0 - 6.0 % 04/16/2020 5:23 AM [facility] Basophils % 0.4 0.0 - 2.0 % 04/16/2020 5:23 AM [facility] Immature Granulocytes 0.5 0 - 1 % 04/16/2020 5:23 AM [facility] Neutrophil Absolute 7.79(H) 2.01 - 7.14 x10E9/L 04/16/2020 5:23 AM [facility] Lymphocytes Absolute 4.35(H) 1.07 - 3.94 x10E9/L 04/16/2020 5:23 AM [facility] Monocytes Absolute 0.79 0.26 - 1.07 x10E9/L 04/16/2020 5:23 AM [facility] Eosinophils Absolute 0.04 0 - 0.47 x10E9/L 04/16/2020 5:23 AM [facility] Basophils Absolute 0.05 0 - 0.08 x10E9/L 04/16/2020 5:23 AM [facility] Immature Granulocytes Absolute 0.07(H) 0.00 - 0.06 x10E9/L 04/16/2020 5:23 AM [facility] nRBC Auto 0 /100 WBC 04/16/2020 5:23 AM [facility] Blood BLOOD SPECIMEN / Unknown Lab Venipuncture / Unknown 04/16/2020 4:53 AM DY[employer] AX TECHNICAL ARCHITECT 04/16/2020 5:11 AM D[employer] AX TECHNICAL ARCHITECT Vanda Garay MD LAB - HEMATOLOGY OR DERABLES Performing Organization Address [facility]/ZIP Co de Phone Number [facility] [address] [place] [address] * (ABNORMAL) BLOOD GASES CORD CAROLYN (04/15/2020 6:09 AM DYNAMICS AX TECHNICAL ARCHITECT) pH Cord Venous 7.46(H) 7.28 - 7.40 pH 04/15/2020 6:19 AM DYNAMICS AX TECHNICAL ARCHITECT [facility] Comment:H pCO2 Cord Venous 26(L) 35 - 45 mm hg 04/15/2020 6:19 AM DYNAMICS AX TECHNICAL ARCHITECT [facility] Comment:L pO2 Cord Venous 30 22 - 33 mm hg 04/15/2020 6:19 AM DYNAM[employer] AX TECHNICAL ARCHITECT [facility] HCO3 Cord Venous 18(L) 22 - 24 mmol/L 04/15/2020 6:19 AM D[employer] AX TECHNICAL ARCHITECT [facility] Comment:L BE Cord Venous -3.2 mmol/L 04/15/2020 6:19 AM DYNAMICS AX TECHNICAL ARCHITECT [facility] O2 Saturation Cord Venous 76 % 04/15/2020 6:19 AM DYNAMICS AX TECHNICAL ARCHITECT [facility] Mode Unknown 04/15/2020 6:19 AM DYNAMICS AX TECHNICAL ARCHITECT [facility] Marc's Test N/A 04/15/2020 6:19 AM DYNAMICS AX TECHNICAL ARCHITECT [facility] Sample Site Other 04/15/2020 6:19 AM DYNAMICS AX TECHNICAL ARCHITECT [facility] Sample Type Cord Blood Venous 04/15/2020 6:19 AM DYNAMICS AX TECHNICAL ARCHITECT [facility] Pediatrics Physician ID [id number] 04/15/2020 6:19 AM DYNAMICS AX TECHNICAL ARCHITECT [facility] Blood CORD BLOOD SPECIMEN / Unknown 04/15/2020 6:09 AM DYNAMICS AX TECHNICAL ARCHITECT 04/15/2020 6:09 AM DYNAMICS AX TECHNICAL ARCHITECT Barbara Drake MD LAB - BLOOD GASES O RDERABLES Performing Organization Address [facility]/ZIP Co de Phone Number [facility] [address] [place] [address] * (ABNORMAL) BLOOD GASES CORD ARTERIAL (04/15/2020 6:09 AM DYNAMICS AX TECHNICAL ARCHITECT) pH Cord Arterial 7.10(L) 7.20 - 7.34 pH 04/15/2020 6:19 AM DYNAMICS AX TECHNICAL ARCHITECT [facility] Comment:L pCO2 Cord Arterial 67(H) 45 - 55 mm hg 04/15/2020 6:19 AM DYNAMICS AX TECHNICAL ARCHITECT [facility] Comment:HH pO2 Cord Arterial 04/15/2020 6:19 AM DYNAMICS AX TECHNICAL ARCHITECT [facility] Comment:< HCO3 Cord Arterial 20.6(L) 22.0 - 24.0 mmol/L 04/15/2020 6:19 AM DYNAMICS AX TECHNICAL ARCHITECT [facility] Comment:L BE Cord Arterial -10.5 mmol/L 04/15/19 6:19 AM DYNAMICS AX TECHNICAL ARCHITECT [facility] O2 Saturation Cord Arterial 04/15/2020 6:19 AM DYNAMICS AX TECHNICAL ARCHITECT [facility] Comment:< Mode Unknown 04/15/2020 6:19 AM DYNAMICS AX TECHNICAL ARCHITECT [facility] Marc's Test N/A 04/15/2020 6:19 AM DYNAMICS AX TECHNICAL ARCHITECT [facility] Sample Site Other 04/15/2020 6:19 AM DYNAMICS AX TECHNICAL ARCHITECT [facility] Sample Type Cord blood Arterial 04/15/2020 6:19 AM DYNAMICS AX TECHNICAL ARCHITECT [facility] Pediatrics Physician ID [id number] 04/15/2020 6:19 AM DYNAMICS AX TECHNICAL ARCHITECT [facility] Notified Who Celina Hopper PA 04/15/2020 6:19 AM DYNAMICS AX TECHNICAL ARCHITECT [facility] Notification Time 04/15/2020 06:18 04/15/2020 6:19 AM DYNAMICS AX TECHNICAL ARCHITECT [facility] Notified By Agustin Giron [employer] 04/15/2020 6:19 AM DYNAMICS AX TECHNICAL ARCHITECT [facility] Blood, arterial CORD BLOOD SPECIMEN / Unknown 04/15/2020 6:09 AM DYNAMICS AX TECHNICAL ARCHITECT 04/15/2020 6:09 AM DYNAMICS AX TECHNICAL ARCHITECT Barbara Drake MD LAB - BLOOD GASES O RDERABLES [facility] [address] [phone] * EPIDURAL BLOCK PERF (04/15/2020 5:36 AM DYNAMICS AX TECHNICAL ARCHITECT) Narrative Harpreet Goss MD - 04/15/2020 5:36 AM D[employer]NAM[employer] AX TECHNICAL ARCHITECT Jamie Mcnally APRN-CRNA 04/15/2020 5:54 AM Neuraxial Block Note Pre-Procedure: Procedure Name: Neuraxial Block Patient Location: OB Indications: at patient's request and labor analgesia Pre-Anesthetic Checklist: Patient identified, IV Checked, Risks and benefits discussed, Surgical consent verified, Monitors and equipment, Site examined, Pre-op evaluation done, Time-out performed, Informed consent obtained, Questions answered/anesthesia questions answered and Allergies reviewed Anticoagulation/ Anti-thrombosis status confirmed? Yes Supplemental O2: room air Monitors: BP and continuous pluse ox Patient Condition: awake Patient Sedated? No Procedure: Block Type: Epidural Prep: Betadine Sterile Field: mask, cap/hat, sterile established and sterile gloves Approach: midline Skin was localized? Yes Skin localized with: lidocaine (XYLOCAINE MPF) 1 % injection, 5 mL Epidural Block: Is this procedure for postop pain? No Needle Type: Tuohy Needle gauge: 18 G Needle length: 90 mm Placement Site: L3-L4 Number of Attempts: 1 Loss of Resistance: 10 saline Catheter length at skin (cm): 17 CSF Aspirated from catheter: No Blood Aspirated: No Test Dose: lidocaine 1.5% with 1-200,000 epinephrine 3 mL at 04/15/2020 5:36 AM Test Dose Response: No Epidural Infusion Medications: Ropivacaine: 0.2% with Fentanyl 2mcg/mL in NS , 150 cc (mL) at 16 mL/hr Degree of difficulty: none Procedure Tolerance: tolerated well Sensory Level: T6 Position post procedure: left uterine displacement, head of bed elevated 30 degrees Vital Signs: heart tones monitored and stable throughout., Vital signs moniitored and stable throughout. See nursing vitals flowsheet for details. Start Time: 04/15/2020 5:33 AM End Time: 04/15/2020 5:36 AM Total Time: 3 Staff: Anesthesia Provider: Jamie Mcnally APRN-CRNA - performed the procedure Additional Notes: Patient understood indications and complications of epidural placement. Patient and family in room had no further questions about epidural placement before procedure started. Patient coached through steps of epidural placement and tolerated procedure well. Good BOLA felt and epidural placed through 18g tuohy needle without pain or parasthesia. Patient indicated test dose negative of circumoral numbness, tinnitus or increased HR/BP at time noted. Harpreet Goss MD GENERAL ANESTHESIA O RDERABLES * EPIDURAL BLOCK PERF (04/15/2020 1:54 AM DYNAMICS AX TECHNICAL ARCHITECT) Narrative Harpreet Goss MD - 04/15/2020 1:54 AM DYNAM[employer] AX TECHNICAL ARCHITECT Jamie Mcnally APRN-CRNA 04/15/2020 2:08 AM Neuraxial Block Note Pre-Procedure: Procedure Name: Neuraxial Block Patient Location: OB Indications: at patient's request and labor analgesia Pre-Anesthetic Checklist: Patient identified, IV Checked, Risks and benefits discussed, Surgical consent verified, Monitors and equipment, Site examined, Pre-op evaluation done, Time-out performed, Informed consent obtained, Questions answered/anesthesia questions answered and Allergies reviewed Anticoagulation/ Anti-thrombosis status confirmed? Yes Supplemental O2: room air Monitors: BP and continuous pluse ox Patient Condition: awake Patient Sedated? No Procedure: Block Type: Epidural Prep: Betadine Sterile Field: mask, cap/hat, sterile established and sterile gloves Approach: midline Skin was localized? Yes Skin localized with: lidocaine (XYLOCAINE MPF) 1 % injection, 8 mL Epidural Block: Is this procedure for postop pain? No Needle Type: Tuohy Needle gauge: 18 G Needle length: 90 mm Placement Site: L3-L4 Number of Attempts: 1 Loss of Resistance: 10 saline Catheter length at skin (cm): 15 CSF Aspirated from catheter: No Blood Aspirated: No Test Dose: lidocaine 1.5% with 1-200,000 epinephrine 3 mL at 04/15/2020 1:54 AM Test Dose Response: No Epidural Infusion Medications: Ropivacaine: 0.2% with Fentanyl 2mcg/mL in NS , 150 cc (mL) at 12 mL/hr Degree of difficulty: none Procedure Tolerance: tolerated well Sensory Level: T6 Position post procedure: left uterine displacement, head of bed elevated 30 degrees Vital Signs: heart tones monitored and stable throughout., Vital signs moniitored and stable throughout. See nursing vitals flowsheet for details. Start Time: 04/15/2020 1:52 AM End Time: 04/15/2020 1:54 AM Total Time: 2 Staff: Anesthesia Provider: Jamie Mcnally APRN-CRNA - performed the procedure Additional Notes: Patient understood indications and complications of epidural placement. Patient and family in room had no further questions about epidural placement before procedure started. Patient coached through steps of epidural placement and tolerated procedure well. Good BOLA felt and epidural placed through 18g tuohy needle without pain or parasthesia. Patient indicated test dose negative of circumoral numbness, tinnitus or increased HR/BP at time noted. Harpreet Goss MD GENERAL ANESTHESIA O RDERABLES * BLOOD TYPE VERIFICATION (04/14/2020 9:28 PM DYNAMICS AX TECHNICAL ARCHITECT) Pathologist [facility] ABO Rh O POS 04/14/2020 10:14 PM DYNAM[employer] AX TECHNICAL ARCHITECT [facility] Blood Bank BLOOD SPECIMEN / Unknown Venipuncture / Unknown 04/14/2020 9:28 PM DYNAM[employer] AX TECHNICAL ARCHITECT 04/14/2020 9:39 PM DYNAMICS AX TECHNICAL ARCHITECT Vanda Garay MD LAB - BLOOD BANK OR DERABLES [facility] [address] [place] [address] * (ABNORMAL) DRUG SCREEN TOX URINE PANEL (04/14/2020 9:17 PM DYNAMICS AX TECHNICAL ARCHITECT) Only the most recent of2 resultswithin the time period is included. Pathologist [facility] Amphetamines Screen Urine Not detected Not detected 04/14/2020 10:10 PM [facility] Barbiturates Screen Urine Not detected Not detected 04/14/2020 10:10 PM [facility] Benzodiazepines Screen Urine Not detected Not detected 04/14/2020 10:10 PM [facility] Cannabinoids Screen Urine Detected(A) Not detected 04/14/2020 10:10 PM [facility] Cocaine Screen Urine Not detected Not detected 04/14/2020 10:10 PM [facility] Fentanyl Urine Not detected Not detected 04/14/2020 10:10 PM [facility] Methadone Screen Urine Not detected Not detected 04/14/2020 10:10 PM [facility] Opiate Screen Urine Not detected Not detected 04/14/2020 10:10 PM [facility] Phencyclidine Screen Urine Not detected Not detected 04/14/2020 10:10 PM [facility] Urine URINE / Unknown Collection / Unknown 04/14/2020 9:17 PM DYNAMICS AX TECHNICAL ARCHITECT 04/14/2020 9:39 PM DYNAM[employer] AX TECHNICAL ARCHITECT Narrative [facility] - 04/14/2020 10:10 PM D[employer]NAM[employer] AX TECHNICAL ARCHITECT This drug screen is designed for MEDICAL purposes only. It is not to be used for legal purposes, including but not limited to worker's comp, police investigations, occupational issues, child custody, etc. Any positive result is only presumptive and must be confirmed with a separate confirmatory test ordered by the physician. Drug Screening Test Cutoff Values: AMPHETAMINES 1000 ng/mL BARBITURATES 200 ng/mL BENZODIAZEPINES 200 ng/mL CANNABINOIDS(THC) 50 ng/mL COCAINE 300 ng/mL FENTANYL 1 ng/mL METHADONE 300 ng/mL OPIATES 300 ng/mL PHENCYCLIDINE(PCP) 25 ng/mL Vanda Garay MD LAB - URINE LABORER POLE CREW RY ORDERABLES Performing Organization Address [facility] Co de Phone Number [facility] [address] [place] [phone] * SYPHILIS ANTIBODY CASCADING REFLEX (04/14/2020 7:45 PM DYNAMICS AX TECHNICAL ARCHITECT) Treponema pallidum Antibody Non Reactive Non Reactive 04/14/2020 8:56 PM DYNAMICS AX TECHNICAL ARCHITECT [facility] Comment: No Laboratory evidence of syphilis infection. Note: Circulating antibodies may be low or undetectable in early infection. If recent exposure is suspected, re-draw sample in 2-4 weeks and repeat testing. Blood BLOOD SPECIMEN / Unknown Venipuncture / Unknown 04/14/2020 7:45 PM DYNAMICS AX TECHNICAL ARCHITECT 04/14/2020 8:10 PM DYNAMICS AX TECHNICAL ARCHITECT Vanda Garay MD LAB - SEROLOGY ORDE RABLES Performing Organization Address [facility] Co de Phone Number [facility] [address] [place], [place] [id number] * TYPE + SCREEN PANEL (04/14/2020 7:45 PM DYNAMICS AX TECHNICAL ARCHITECT) ABO Rh O POS 04/14/2020 8:49 PM DYNAMICS AX TECHNICAL ARCHITECT [facility] Comment:No history; collect retype. Antibody Screen NEG 8:49 PM DYNAMICS AX TECHNICAL ARCHITECT [facility] Blood Bank BLOOD SPECIMEN / Unknown Venipuncture / Unknown 04/14/2020 7:45 PM DYNAMICS AX TECHNICAL ARCHITECT 04/14/2020 8:10 PM DYNAMICS AX TECHNICAL ARCHITECT Vanda Garay MD LAB - BLOOD BANK OR DERABLES Performing Organization Address [facility] Co de Phone Number [facility] [address] [place] [id number] [place] [address] * CULTURE STREP B (04/07/2020 9:53 AM DYNAMICS AX TECHNICAL ARCHITECT) Culture Strep B Negative for beta-hemolytic Streptococcus Group B [facility] 04/10/2020 2:20 PM DYNAMICS AX TECHNICAL ARCHITECT [facility]CRO[facility] Microbiology MISCELLANEOUS SAMPLES / Unknown Collection / Unknown 04/07/2020 9:53 AM DYNAMICS AX TECHNICAL ARCHITECT 04/07/2020 10:20 AM DYNAMICS AX TECHNICAL ARCHITECT Arthur Nayak MD LAB - MICROBIO LOGY ORDERABLES Performing Organization Address [facility] Co de Phone Number [facility] [address] [phone] * GLUCOSE PROTEIN KETONE URINE - POINT OF CARE (04/07/2020 8:57 AM DYNAMICS AX TECHNICAL ARCHITECT) Glucose UA NEG Negative [facility] Protein UA NEG Negative [facility] Ketone UA NEG Negative [facility] QC Verified Yes Yes [facility] POC T TESTING Urine URINE / Unknown 04/07/2020 8 :57 AM DYNAMICS AX TECHNICAL ARCHITECT Arthur Nayak MD LAB - POINT OF CARE ORDERABLES Performing Organization Address [facility] Co de Phone Number [facility] [address] [place] [address], [facility] [phone] * BIOPHYSICAL PROFILE W NST (04/07/2020 8:13 AM DYNAMICS AX TECHNICAL ARCHITECT) Only the most recent of2 resultswithin the time period is included. Anatomical Region Laterality Modality Other 04/07/2020 8:13 AM DYNAMICS AX TECHNICAL ARCHITECT Narrative 04/07/2020 10:19 AM DYNAMICS AX TECHNICAL ARCHITECT [facility] PHONE: FAX: Pat. Name: AURELIA CROWE Pat. No: [id number] Study Date: 04/07/2020 8:13am , Age: 9 1995, 24 Pregnancies: 2, Para 1 Height: 68 in Weight: 356 lb LMP: 07/16/2019 GA by LMP: 38w0d GA by Base: 38w0d RIVAS: 04/21/2020 GA by US: 39w0d RIVAS: 04/14/2020 GA Selected: 38w0d (LMP) RIVAS: 04/21/2020 Referring MD: Lenora Unger MD Tablet Coater: Radha Chowdhury RDMS, RVT CPT4: 86725,84384 BMI: 54.12 Hist/Ind: Suspected accelerated growth on 03/10 grade A1 UTD on 03/25 Class IV obesity Asthma Anxiety, PTSD Marijuana use MEASUREMENTS & AGE GROWTH EVALUATION Measurement GA Range Srce %for GA Ratios ----- ---- ------- BPD 9.4 cm 38w2d ([id number]) Hadl BPD 78% FL/BPD 0.78 (0.71 - 0.87) HC 35.1 cm 40w6d (30c2h-10o1a) Hadl HC 89% FL/AC 0.20 (0.20 - 0.24) AC 35.8 cm 39w5d (98b4u-22k1l) Hadl AC 95% HC/AC 0.98 (0.90 - 1.09) FL 7.3 cm 37w3d (13m1n-14h5b) Hadl FL 36% CI 0.75 (0.70 - 0.86) HL 6.8 cm 39w2d (39z2o-52g9f) Kamari HL 70% GA for sonogram 39w0d (09o0e-29v7q) Weight Estimate: based on (BPD,HC,AC,FL) Avg Weight: 3694 gm (3154-4233gm) Had : 8lbs, 2oz Normal: 3236 gm (2427-4045gm) Had Wt% 86% for 38w0d Heart Rate: 159 bpm Amniotic Fluid Index: 11.2cm (07.3-23.9) Q1: 1.3cm Q2: 3.0cm Q3: 2.2cm Q4: 4.8cm Biophysical Profile: 10/12 Breathin Tone: 2 Movement: 2 AFV: 2 EVAL, PLACENTA Presentation: cephalic Placenta: posterior Heart Rate: 159 bpm Amniotic Fluid Volume: normal Anatomy!Normal!Abnormal!Suboptimal!Prev. Seen!Comments Situs ! x ! ! ! ! Stomach ! x ! ! ! ! Kidneys ! x ! ! ! ! Bladder ! x ! ! ! ! CLINICAL SUMMARY Study Number: 7 IMPRESSION: 1) Estrada gestation, 38w0d 2) The accuracy of weight estimates is highly limited at term and at a higher BMI but the AC measurement >90th %ile is again concerning for accelerated growth 3) The amniotic fluid volume is within normal limits 4) Reassuring 8-point biophysical profile 5) No abnormalities were detected during today's limited review of the anatomy. 6) Both renal pelvis measurements are now within normal limits for gestational age (< 7 mm) NOTE: The patient was advised that ultrasound does not allow detection of all structural or chromosomal abnormalities. RECOMMEND: Close maternal movement monitoring while awaiting admission for delivery (scheduled in 7 days, per staff report) Thank you for allowing us the opportunity to care for your patient. Vanda Garay MD <Electronic Signature> 04/07/2020 10:17am Lenora Unger DO [facility] * SONOGRAM - COMPLETE (03/10/2020 1:08 PM DYNAMICS AX TECHNICAL ARCHITECT) Only the most recent of5 resultswithin the time period is included. Anatomical Region Laterality Modality Other 03/10/2020 1:08 PM DYNAMICS AX TECHNICAL ARCHITECT Narrative 03/10/2020 4:08 PM [facility] PHONE: FAX: Pat. Name: AURELIA CROWE Pat. No: [id number] Study Date: 03/10/2020 1:08pm , Age: 9 1995, 24 Pregnancies: 2, Para 1 Height: 68 in Weight: 356 lb LMP: 07/16/2019 GA by LMP: 34w0d GA by Base: 34w0d RIVAS: 04/21/2020 GA by US: 36w2d RIVAS: 04/05/2020 GA Selected: 34w0d (LMP) RIVAS: 04/21/2020 Referring MD: Lenora Unger MD Tablet Coater: Annel De Oliveira, RDMS, RDCS CPT4: 14145 BMI: 54.12 Hist/Ind: Complete Anatomy Class IV obesity MEASUREMENTS & AGE GROWTH EVALUATION Measurement GA Range Srce %for GA Ratios ----- ---- ------- BPD 8.9 cm 36w0d (71v9w-94w8q) Hadl BPD 92% FL/BPD 0.78 (0.71 - 0.87) HC 33.8 cm 38w6d (66d7y-70h6m) Hadl HC 98% FL/AC 0.22 (0.20 - 0.24) AC 31.5 cm 35w3d (44b6q-81a9n) Hadl AC 87% HC/AC 1.07 (0.94 - 1.13) FL 7.0 cm 35w5d (50z9w-90o0g) Hadl FL 83% CI 0.73 (0.70 - 0.86) HL 6.2 cm 36w1d (49q8z-79t6y) Kamari HL 86% GA for sonogram 36w2d (69z0w-11r4s) Weight Estimate: based on (BPD,HC,AC,FL) Hadlock Weight: 2796 gm (2388-3205gm) Had : 6lbs, 2oz Normal: 2377 gm (1783-2971gm) Had Wt% 91% for 34w0d Heart Rate: 162 bpm Amniotic Fluid Index: 22.7cm (08.1-24.8) Q1: 6.4cm Q2: 5.0cm Q3: 7.4cm Q4: 3.9cm EVAL, PLACENTA Presentation: cephalic Placenta: posterior Heart Rate: 162 bpm Amniotic Fluid Volume: normal Anatomy!Normal!Abnormal!Suboptimal!Prev. Seen!Comments Cerebellar Ve! x ! ! ! ! Ductal Arch ! ! ! x ! ! Aortic Arch ! ! ! x ! ! Stomach ! x ! ! ! ! Kidneys ! ! x ! ! !Left renal pelvis dilation measures 0.74 cm Bladder ! x ! ! ! ! CLINICAL SUMMARY Study Number: 5 A single fetus is seen in cephalic presentation. The measurements today are consistent with appropriate interval growth. The RIVAS is based on LMP and prior ultrasound . The amniotic fluid volume is within normal limits. anatomy was limited by challenging maternal acoustic properties and position. No major malformations were seen within the limitations of ultrasound. IMPRESSION: Single, live, intrauterine at 34w0d size is within normal limits Amniotic fluid volume: within normal limits RECOMMEND: Ultrasound in 2 weeks for weekly 8 point BPP Thank you for allowing us the opportunity to care for your patient. Christopher Lozano MD <Electronic Signature> 03/10/2020 04:08pm Christopher Lozano MD [facility] Care Teams Engine Dispatcher Relationship Specialty Start Date End Date Yasmin Piper MD [address] [place] [id number] PCP - General 04/08/20
--- OUTSIDE RECORDS SUMMARY | 2024-04-30 12:03 | XMS_ITS | Encounter Summary ---
Author Organization [facility] Address [address] [place] [address] Care Team Providers Care Special Tester Name Role Phone None, Provider Primary Care Provider Joaquin Sheehan DO Primary Care Provider Dash Orona Primary Care Provider [phone] Encounter Details Date Type Department Care Team (Latest Contact Info) Description 01/10/2018 Abstract [facility] Md, Generic Conversion, Social History Tobacco Use Types Packs/Day Years Used Date Smoking Tobacco: Never Assessed Comments Unknown Sex and Gender Information Value Date Recorded Sex Assigned at Not on file Legal Sex Female 8:05 PM CDT Gender Identity Not on file Sexual Orientation Not on file documented as of this encounter Plan of Treatment Not on file documented as of this encounter Visit Diagnoses Not on filedocumented in this encounter Care Teams Special Tester Relationship Specialty Start Date End Date None, Provider, PCP - General 10/12/19 04/01/21 Joaquin Haynes DO PCP - General FAMILY PRACTICE 04/02/21 12/08/23 [place] [address] [place] [address] PCP - General Physician Acute Care Clinical Nurse Specialist Medical 12/09/23 documented as of this encounter
--- OUTSIDE RECORDS SUMMARY | 2024-04-30 12:03 | XMS_ITS | Encounter Summary ---
Author Organization [facility] Address [address] [place] [address] Care Team Providers Care Site Reliability Engineer Name Role Phone Dash Salinas Primary Care Provider [phone] Encounter Details Date Type Department Care Team (Late st Contact Info) Description 04/30/2024 9:07 AM CLIENT SERVICE EXECUTIVE - 04/30/2024 9:32 AM [facility] Emergency [facility] Emergency Room [id number] [place] [address] Jeremias Du MD [address] [place] [address] Discharge Disposition: Left w/o Being Seen Social History Tobacco Use Types Packs/Day Years Used Date Smoking Tobacco: Never Smokeless Tobacco: Never Alcohol Use Standard Drinks/Week Comments Not Currently 0 (1 standard drink = 0.6 oz pur e alcohol) Comments Yes Sex and Gender Information Value Date Recorded Sex Assigned at Not on file Legal Sex Female 8:05 PM CDT Gender Identity Not on file Sexual Orientation Not on file documented as of this encounter Medications at Time of Discharge albuterol sulfate HFA 108 (90 Base) MCG/ACT inhaler Inhale 2 puffs into the lungs every 6 (six) hours as needed for Wheezing. cetirizine 10 MG tablet Take 10 mg by mouth daily. metoclopramide 10 MG tablet Take 1 tablet (10 mg total) by mouth 4 (four) times daily as needed (vomiting). 20 tablet 05/25/2021 documented as of this encounter ED Notes * Marilee Stout RN - 04/30/2024 9:27 AM CST Patient told registration she was going to the walk in clinic NT SERVICE EXECUTIVE documented in this encounter Plan of Treatment Not on file documented as of this encounter Visit Diagnoses Not on filedocumented in this encounter Care Teams Site Reliability Engineer Relationship Specialty [place] [address] [place] [address] PCP - General Physician Assignment Agent Medical 12/09/23 documented as of this encounter
--- OUTSIDE RECORDS SUMMARY | 2024-04-30 12:03 | XMS_ITS | Encounter Summary ---
Author Organization [facility] Address [address] [place] [address] Care Team Providers Care Quarry Plant Crusher Operator Name Role Phone Dash Salinas Primary Care Provider [phone] Encounter Details Date Type Department Care Team (Latest Contact Info) Description 04/30/2024 Travel Social History Tobacco Use Types Packs/Day Years [...] on filedocumented in this encounter Care Teams Quarry Plant Crusher Operator Relationship Specialty [place] [address] [place] [address] PCP - General Physician Cellophane Bath Mixer Medical 12/09/23 documented as of this encounter
--- OUTSIDE RECORDS SUMMARY | 2024-04-30 12:03 | XMS_ITS | Clinical Summary ---
Author Organization [facility] Address [facility] [place] [address] Care Team Providers Care Adhesive Bonding Machine Operator Name Role Phone Dash Salinas Primary Care Provider [phone] Allergies No known active allergies Medications albuterol sulfate HFA 108 (90 Base) MCG/ACT inhaler Inhale 2 puffs into the lungs every 6 (six) hours as needed for Wheezing. Active cetirizine 10 MG tablet Take 10 mg by mouth daily. Active metoclopramide 10 MG tablet Take 1 tablet (10 mg total) by mouth 4 (four) times daily as needed (vomiting). 20 tablet 05/25/2021 Active Active Problems Problem Noted Date Diagnosed Date Anxiety 12/13/2023 Overview (12/13/2023): Last Assessment & Plan: History of PTSD with anxiety. Notes anxiety to be prominent and affecting her quality of life. States she smokes marijuana daily due to her anxiety, but desires to stop marijuana. Has prescription for buspirone from Logistics System Engineer, hesitant to start. Has counselor that she has recently reached out to for resumption of counseling. History of trauma, has done counseling for that and history of PTSD. [facility] Plan: 1. Buspar [Buspirone]: [place] FDA class B. Limited data. No increased risk of congenital anomalies. It is excreted in breast milk. No strong contraindication to . I encouraged Sweta to start her prescribed Buspar to aid her prominent anxiety. Discussed that buspirone is different from SSRIs which she has not liked in the past. 2. Hydroxyzine also sent to pharmacy for as needed use while waiting for buspirone to be effective. 3. Echoed her desire to resume counseling. 4. Support provided. PTSD (post-traumatic stress disorder) 12/13/2023 Obesity affecting , antepartum ([facility] ) 05/13/2021 Positive urine drug screen 05/13/2021 Encounter for elective induction of labor ([facility]) 04/14/2020 Maternal morbid obesity, del ivered, current hospitalization ([facility]) 04/07/2020 Abnormal Pap smear of cervix 11/28/2019 Overview (12/13/2023): Shares she had moderate dysplasia this and will be doing colposcopy with Logistics System Engineer, encouraged patient to follow through with rescheduling this appointment. Discussed potential need for follow up as well. Last Assessment & Plan: Shares she had moderate dysplasia this and will be doing colposcopy with Logistics System Engineer, encouraged patient to follow through with rescheduling this appointment. Discussed potential need for follow up as well. Asthma affecting in second trimester ( [facility]) 11/19/2019 Overview (12/13/2023): Mild persistent based on Albuterol use during the day, 3x per week for the last several months, warrants daily ICS. Denies hospitalizations, notes Albuterol relieves her symptoms, she does not have PCP. Last Assessment & Plan: Mild persistent based on Albuterol use during [...] 2 puffs BID--RX provided. Marijuana use 11/19/2019 Overview (12/13/2023): Last Assessment & Plan: Current use 1/3 gram per day, she [...] well. 2. Discouraged with continued marijuana use. Morbid obesity with body mas s index of 50.0-59.9 in adult ([facility]) 11/19/2019 Overview (12/13/2023): Pre BMI: 54 Early GCT: 106 Last Assessment & Plan: Pre BMI: 54 Early GCT: 106 Total [...] alpha fetoprotein screening to be done with Logistics System Engineer prior to 21 weeks. 7. Referring Logistics System Engineer please also collect: hemoglobin A1C, TSH, free T4, CMP. 8. Folic acid 1mg sent to pharmacy to be taken in addition to PNV. 9. Anatomy ultrasound pending today and formal report to follow. Supervision of high risk pre gnancy, antepartum, unspecified trimester ([facility]) 11/19/2019 Overview (12/13/2023): Dating: LMP c/w 12w4d u/s with CRL of 6.14cm, giving RIVAS--> 04/21/20 summary from 10/12/19: O+/Rub Immune/Hep B surface antigen neg/TP-PA NR/HIV NR CBC: H/H/P: 14.2/42.4/366 Abdominal pain 06/25/2012 Nausea with vomiting 06/25/2012 Acute otitis media 2011 Acute pharyngitis 2011 Acute sinusitis 2011 Viral infection 2011 Comments Yes Resolved Problems Problem Noted Date Diagnosed Date Resolved Date Encounter for preventive health examination 2011 12/19/2023 Encounters Date Type Department Care Team Description 04/30/2024 9:07 AM ACTUARIAL CONSULTANT - 04/30/2024 9:32 AM [facility] Emergency [facility] Emergency Room [address] [place] [address] Jeremias Du MD Discharge Disposition: Left w/o Being Seen 04/30/2024 Travel from Last 3 Months Immunizations Name Administration Dates Next Due DTaP (Daptacel) 03/16/1996 Dtap 03/31/2000 Dtp/Hib 03/16/1996,07/04/1995,05/05/1995 ,03/03/1995 HPV4 (Gardasil) 08/25/2007,04/21/2007,02/13/2007 Hepatitis A Vaccine - 2 Dose 08/25/2007,02/14/20 07 Hepatitis B Pediatric 07/04/1995,03/03/1995,12/05,1994 Influenza (Generic) 03/21/2012 MMR 03/31/2000,03/16/1996 Meningococcal (Menactra) 02/13/2007 Opv 07/04/1995,05/05/1995,03/03/1995 Polio Ipv (Generic) 03/31/2000 Tdap (Generic) 02/13/2007 Social History Tobacco Use Types Packs/Day Years [...] Sign Reading Time Taken Comments Blood Pressure 124/61 05/25/2021 1:16 PM CDT Pulse 99 05/25/2021 1:16 PM CDT Temperature 36.4 C (97.5 F) 05/25/2021 1:16 PM CDT Respiratory Rate 18 05/25/2021 1:16 PM CDT Oxygen Saturation 100% 05/25/2021 1:16 PM CDT Inhaled Oxygen Concentration - - Weight 158.8 kg (350 lb) 05/25/2021 11:12 AM CDT Height 172.7 cm (5' 8 ) 05/25/2021 11:12 AM CDT Body Mass Index 53.22 05/25/2021 11:12 AM CDT Plan of Treatment Health Maintenance Due Date Last Done Comments Annual Physical 1997 Pneumococcal Vaccine: Pediatrics (0 to 5 Years) and At-Risk Patients (6 to 64 Years) (1 of 2 - PCV) 2000 Hepatitis C 2012 Cervical Cancer Screening Pap Smear (Age 21 to 29) Every 3 Years 10/11/2022 10/12/2019 Cervical Cancer Screening 10/11/2022 COVID-19 Vaccine ( season) 2023 Influenza Adult (#1) 2023 03/21/2012 PHQ-2 (Physician Council) 03/07/2024 DTaP, Tdap and Td Vaccines (5 - Td or Tdap) 01/04/2033 01/04/2023, 02/13/2007, 03/31/2000, Additional history exists RSV Immunization or 60+ Years (1 - 1-dose 75+ series) 2069 Hepatitis B Vaccines Completed 07/04/1995, 03/03/1995, 1994, Additional history exists Meningococcal Vaccine Aged Out 02/13/2007 No matthew dmitriy eligible based on patient's age to complete this topic HPV Vaccines Completed 08/25/2007, 04/07, 02/13/2007 Meningococcal B Vaccine Aged Out No l onger eligible based on patient's age to complete this topic RSV Immunizations Under 20 Months Aged Out No longer eligible based on patient's age to complete this topic Procedures Procedure Name Priority Date/Time Associated Diagnosis Comments CYTOPATH CERV/VAG THIN LAYER Routine 10/12/2019 12:00 AM CDT from Last 3 Months or Most Recently Relevant to Health Maintenance Results * Cytopath Cerv/Vag Thin Layer (10/12/2019 12:00 AM CDT) COPATH REPORT [address] [phone] Department of Pathology Pathology Report Gynecological Cytology Report Patient Name: SWETA CROWE : 1995 (Age: 23) Location: [facility] Gender: F Collected Date: 10/12/2019 [facility] Rec #: [id number] Date Received: 10/15/2019 Date Reported: 10/15/2019 Provider: MOLINA UNGER DO Other Case Numbers [id number] Final Cytologic Diagnosis ABNORMAL RESULT Satisfactory for evaluation. Endocervical component present. ATYPICAL SQUAMOUS CELLS - CANNOT EXCLUDE HSIL (ASC-H) This case was signed out at [facility], [address] [place] [address]. Electronical ly Signed Out CAN Mcdaniel Source of Specimen(s) Cervical/Endoc ervical - Thin Prep Clinical History Screening, last Pap 03/2017, . Z12.4 Date of Last Menstrual Period: 07/16/19 Billing Fee Code(s): A: [id number] [facility] () [facility] 10/12/2019 10/15/2019 7:2 1 AM CDT Comment:CERVICAL/ENDOCERVICA L - THIN PREP us Molina Unger DO PATHOLOGY/CYTOLOGY ORDERABL ES Final Result [facility] () [facility] [address] [place] [address], from Last 3 Months or Most Recently Relevant to Health Maintenance Insurance MEDICAID Care Teams Adhesive Bonding Machine Operator Relationship Specialty [place] [address] [place] [address] PCP - General Physician Charge Manager Medical 12/09/23
== END 2024-04-30 11:08 | disposition home or self-care (01) ==
PROVIDERS: Emergency Provider Nurse Practitioner
DX: J40 Bronchitis, not specified as acute or chronic (principal); J06.9 Acute upper respiratory infection, unspecified
CPT/HCPCS: 87081; 87880; 99203; G0463